=== PATIENT | male | born 1985 | race Caucasian/White ===

== ENCOUNTER 2017-03-30 11:00 | Emergency (ER) ==
[2017-03-30 11:05] VITALS: BP 111/68; TEMP 98.1; BMI 25.0
--- NOTE | 2017-03-30 11:32 | DI ---
EXAM: Two views of the chest. History: Cough. Comparison: Chest radiograph 10/22/2014 Findings: Heart size is normal. No focal consolidation. No appreciable pleural fluid and no pneumo thorax. No acute osseous abnormalities. Impression: No acute cardiopulmonary process.
--- NOTE | 2017-03-30 12:29 | ED.PDOC ---
General ED Provider: Dr. CHEVY SAINI Chief Complaint: Chest Wall Injury/Pain Stated Complaint: cough flu like symptoms Time Seen by Physician: 11:00 Mode of Arrival: Walk-In Information Source: Patient Exam Limitations: No limitations Primary Care Provider: OLAMIDE FIORE Nursing and Triage Documentation Reviewed and Agree: Yes Reviewed sepsis parameters & appropriate labs ordered?: Yes System Inflammatory Response Syndrome: Not Applicable Sepsis Protocol: For patient's 13 years and over: Temp is 96.8 and below OR 101 and greater Pulse >90 BPM Resp >20/minute Acutely Altered Mental Status Are patient's symptoms suggestive of a new infection, such as: -Pneumonia -Skin, Soft Tissue -Endocarditis -UTI -Bone, Joint Infection -Implantable Device -Acute Abdominal Infection -Wound Infection -Meningitis -Blood Stream Catheter Infection -Unknown System Inflammatory Response Syndrome: Not Applicable Respiratory Complaint Exam - Respiratory Complaint/Exam Symptoms Are: Still present Timing: Constant Initial Severity: Mild Current Severity: Mild Location: Nose, Throat, Chest Character: Reports: Non-productive cough Aggravating: Reports: None Alleviating: Reports: None Associated Signs and Symptoms: Reports: Chills, URI, Nasal congestion, Sore throat. Denies: Rapid breathing, Dyspnea, Fever, Chest pain, Pleuritic chest pain, Wheezing, Hemoptysis, Dizziness, Calf pain, Calf swelling, Edema, Hoarseness, Sinus discomfort, Vomiting, Weight loss, Decreased oral intake, Increased thirst, Increased appetite, Increased urination Related History: Reports: Similar episode History of Healthcare-Acquired Pneumonia: No Related Surgical History: Reports: None Pulmonary Embolism Risk Factors: None Cardiac Risk Factors: Reports: None Pseudomonas Risk Factors: Reports: None Tuberculosis Risk Factors: Reports: None Status Asthmaticus Risk Factors: Reports: None Home Oxygen Use: No Recent Stress Test: No Recent Echo/LV Function: No Current Antibiotic Use: No Current Asthma Medication Use: No Respiratory Distress: None Inadequate Respiratory Effort: No Dysphagia Present: No Stridor Present: No JVD Present: No Accessory Muscle Use: No Retractions: Not Present Differential Diagnoses: Pneumonia, Bronchitis Review of Systems - Review Of Systems Constitutional: Reports: No symptoms, Malaise Eyes: Reports: No symptoms Ears, Nose, Mouth, Throat: Reports: No symptoms, Throat pain Respiratory: Reports: Cough Cardiac: Reports: No symptoms GI: Reports: No symptoms : Reports: No symptoms Musculoskeletal: Reports: No symptoms Skin: Reports: No symptoms Neurological: Reports: No symptoms Endocrine: Reports: No symptoms Hematologic/Lymphatic: Reports: No symptoms All Other Systems: Reviewed and Negative Past Medical History - Past Medical History Endocrine: Reports: None Cardiovascular: Reports: None Respiratory: Reports: None Hematological: Reports: None Gastrointestinal: Reports: None Genitourinary: Reports: None Neuro/Psych: Reports: None Musculoskeletal: Reports: None Cancer: Reports: None - Surgical History General Surgical History: Reports: None, Unknown - Family History Family History: Reports: None - Social History Smoking Status: Current every day smoker, Heavy tobacco smoker Hx Substance Use: No (MARIJUANA) Alcohol Screening: None Physical Exam - Physical Exam Appearance: Well-appearing, No pain distress, Well-nourished Eyes: ADDISON, EOMI, Conjunctiva clear ENT: Ears normal, Nose normal, Oropharynx normal Respiratory: Airway patent, Breath sounds clear, Breath sounds equal, Respirations nonlabored Cardiovascular: RRR, Pulses normal, No rub, No murmur GI/: Soft, Nontender, No masses, Bowel sounds normal, No Organomegaly Musculoskeletal: Normal strength, ROM intact, No edema, No calf tenderness Skin: Warm, Dry, Normal color Neurological: Sensation intact, Motor intact, Reflexes intact, Cranial nerves intact, Alert, Oriented Psychiatric: Affect appropriate, Mood appropriate Interpretation - Radiology Interpretation Radiology Interpretation By: Radiologist Radiology Results: No acute changes Critical Care Note - Critical Care Note Total Time (mins): 0 Course - Course Hematology/Chemistry: 03/30/17 11:15 03/30/17 11:15 Orders, Labs, Meds: Lab Review 03/30/17 03/30/17 03/30/17 11:15 11:15 11:15 WBC 9.20 RBC 4.92 Hgb 15.5 Hct 43.9 MCV 89.2 MCH 31.5 H MCHC 35.3 RDW Coeff of [place] 13.2 Plt Count 229 Immature Gran % (Auto) 0.1 Neut % (Auto) 65.1 Lymph % (Auto) 22.7 [place] % (Auto) 7.8 Eos % (Auto) 3.6 Baso % (Auto) 0.7 Immature Gran # (Auto) 0.0 Neut # 6.0 Lymph # 2.1 [place] # 0.7 Eos # 0.3 Baso # 0.1 Sodium 137 Potassium 4.0 Chloride 104 Carbon Dioxide 27 Anion Gap 10.0 BUN 10 Creatinine 0.84 Estimated GFR (MDRD) 107.00 BUN/Creatinine Ratio 11.90 Glucose 98 Calcium 9.8 Total Bilirubin 0.4 AST 28 ALT 25 Alkaline Phosphatase 70 Total Protein 7.8 Albumin 3.8 Globulin 4.0 Albumin/Globulin Ratio 0.95 Influenza A (Rapid) Negative by naat Influenza B (Rapid) Negative by naat Orders Category Date Time Status CBC W/ AUTO DIFF Stat LAB 03/30/17 11:15 Completed COMPREHENSIVE METABOLIC PANEL Stat LAB 03/30/17 11:15 Completed MOLECULAR FLU A/B Stat LAB 03/30/17 11:15 Completed MOLECULAR GROUP A STREP Stat LAB 03/30/17 11:15 Completed CHEST, 2 VIEWS PA & LAT Stat RADS 03/30/17 11:06 Completed Vital Signs: Temp Pulse Resp BP Pulse Ox 03/30/17 11:01 98.1 F 72 20 111/68 98 Departure - Departure Time of Disposition: 12:28 Disposition: HOME SELF-CARE Discharge Problem: Viral syndrome Instructions: Viral Syndrome (ED) Condition: Good Pt referred to PMD for follow-up: Yes Additional Instructions: Please call your Family Physician as soon as possible to schedule a follow-up appointment. Allergies/Adverse Reactions: Allergies Penicillins Adverse Reaction (Verified 03/30/17 11:07) Home Medications: Ambulatory Orders 1 [No Reported Medications] 03/30/17
== END 2017-03-30 12:37 | disposition home or self-care (01) ==
LOC: ED 11:00
DX: B34.9 Viral infection, unspecified (principal); F17.210 Nicotine dependence, cigarettes, uncomplicated
CPT/HCPCS: 36415; 80053; 85025; 87502; 87651; 99283

== ENCOUNTER 2017-04-05 01:44 | Outpatient (CLI) ==
[2017-04-05 21:49] VITALS: BMI 24.3
== END 2017-04-05 01:50 ==
LOC: AMBL 01:44
PROVIDERS: ATTEND Emergency Medicine
DX: R07.9 Chest pain, unspecified (principal)

== ENCOUNTER 2017-04-05 02:00 | Emergency (ER) ==
[2017-04-05 02:20] VITALS: BP 132/88; TEMP 97.9; BMI 24.3
--- NOTE | 2017-04-05 02:46 | ED.PDOC ---
General ED Provider: Dr. CIERRA MCCOY Chief Complaint: Chest Wall Injury/Pain Stated Complaint: Patient is a 31 year old patient who comes to the ER with complains of pain to right rib area that moves around to the chest, worse when he talk or takes a breathe. He also states has pain to back at shoulder area Time Seen by Physician: 02:43 Mode of Arrival: Ambulance Information Source: Patient Exam Limitations: No limitations Primary Care Provider: OLAMIDE FIORE Nursing and Triage Documentation Reviewed and Agree: Yes Reviewed sepsis parameters & appropriate labs ordered?: Yes System Inflammatory Response Syndrome: Not Applicable Sepsis Protocol: For patient's 13 years and over: Temp is 96.8 and below OR 101 and greater Pulse >90 BPM Resp >20/minute Acutely Altered Mental Status Are patient's symptoms suggestive of a new infection, such as: -Pneumonia -Skin, Soft Tissue -Endocarditis -UTI -Bone, Joint Infection -Implantable Device -Acute Abdominal Infection -Wound Infection -Meningitis -Blood Stream Catheter Infection -Unknown System Inflammatory Response Syndrome: Not Applicable Cardiovascular Complaint Exam - Chest Pain Complaint/Exam Onset: Sudden Duration: 1 week Symptoms Are: Still present Timing: Constant Location: Reports: Diffuse Pain Radiates: Reports: None Character: Reports: Tightness, Sharp Aggravating: Reports: Movement, Deep breaths Alleviating: Reports: None Associated Signs and Symptoms: Denies: Diaphoresis, Nausea, Vomiting, Fever, Palpitations, Cough, Hemoptysis, Back pain, Abdominal pain, Dizziness, Short of air, Calf pain, Calf swelling Related History: Reports: Similar episode Related Surgical History: Reports: None History of Healthcare-Acquired Pneumonia: Reports: No AMI/ACS Risk Factors: Reports: None TAD Risk Factors: Reports: None Pulmonary Embolism Risk Factors: Reports: None Prior Care for this Complaint: No Recent Stress Test: No Recent Echo/LV Function: No JVD Present: No Subcutaneous Emphysema Present: No Diminshed Breath Sounds: No Reproducible Chest Wall Pain: Yes Bilateral Pulses Present: No If Risk Factors for AMI/ACS Consider: EKG, Cardiac Enzymes, Aspirin Differential Diagnoses: Acute CO, Chest Wall Pain, Other (pleuricy ) Review of Systems - Review Of Systems Constitutional: Reports: No symptoms Eyes: Reports: No symptoms Ears, Nose, Mouth, Throat: Reports: No symptoms Respiratory: Reports: No symptoms Cardiac: Reports: Chest pain GI: Reports: No symptoms : Reports: No symptoms Musculoskeletal: Reports: No symptoms Skin: Reports: No symptoms Neurological: Reports: Anxiety Endocrine: Reports: No symptoms Hematologic/Lymphatic: Reports: No symptoms All Other Systems: Reviewed and Negative Past Medical History - Past Medical History Endocrine: Reports: None Cardiovascular: Reports: None Respiratory: Reports: Asthma Hematological: Reports: None Gastrointestinal: Reports: None Genitourinary: Reports: None Neuro/Psych: Reports: None Musculoskeletal: Reports: None Cancer: Reports: None - Surgical History General Surgical History: Reports: Unknown - Family History Family History: Reports: None - Social History Smoking Status: Current every day smoker, Heavy tobacco smoker Hx Substance Use: No (MARIJUANA) Alcohol Screening: None - Immunizations Tetanus Shot up to Date: (UNKNOWN) Physical Exam - Physical Exam Appearance: Ill-appearing Ill-appearing: Mild Pain Distress: Severe Eyes: ADDISON, EOMI, Conjunctiva clear ENT: Ears normal, Nose normal, Oropharynx normal (except poor dentiation. ) Neck: Supple Respiratory: Airway patent, Breath sounds clear, Breath sounds equal, Respirations nonlabored Cardiovascular: RRR GI/: Soft, Nontender, No masses, Bowel sounds normal, No Organomegaly Musculoskeletal: Normal strength, ROM intact, No edema, No calf tenderness Skin: Warm, Dry, Normal color Neurological: Sensation intact, Motor intact, Reflexes intact, Cranial nerves intact, Alert, Oriented Psychiatric: Anxious Interpretation - Radiology Interpretation Radiology Interpretation By: ED Physician Radiology Results: Negative Exam Interpreted: Portable CXR - EKG Interpretation Time of EKG #1: 02:55 Rate: Normal Rhythm: Sinus Ectopy: None [place]: NL ST Segment: Other (Diffuse ST elevation.) Interpretation: Normal EKG Critical Care Note - Critical Care Note Total Time (mins): 0 Course - Course Hematology/Chemistry: 04/05/17 02:50 04/05/17 02:50 Orders, Labs, Meds: Lab Review 04/05/17 04/05/17 02:50 02:50 WBC 12.15 H RBC 4.82 Hgb 15.0 Hct 41.9 L MCV 86.9 MCH 31.1 H MCHC 35.8 H RDW Coeff of [place] 12.9 Plt Count 281 Immature Gran % (Auto) 0.4 Neut % (Auto) 62.6 Lymph % (Auto) 27.4 [place] % (Auto) 5.8 Eos % (Auto) 3.3 Baso % (Auto) 0.5 Immature Gran # (Auto) 0.1 Neut # 7.6 H Lymph # 3.3 [place] # 0.7 Eos # 0.4 Baso # 0.1 Sodium 138 Potassium 4.0 Chloride 102 Carbon Dioxide 28 Anion Gap 12.0 BUN 12 Creatinine 0.88 Estimated GFR (MDRD) 102.00 BUN/Creatinine Ratio 13.63 Glucose 113 H Calcium 10.1 Total Bilirubin 0.4 AST 21 ALT 22 Alkaline Phosphatase 65 Troponin I < 0.0100 Total Protein 7.5 Albumin 3.8 Globulin 3.7 Albumin/Globulin Ratio 1.03 Orders Category Date Time Status EKG-(ED ONLY) Stat CARDIO 04/05/17 03:10 Completed CBC W/ AUTO DIFF Stat LAB 04/05/17 02:50 Completed COMPREHENSIVE METABOLIC PANEL Stat LAB 04/05/17 02:50 Completed TROPONIN I Stat LAB 04/05/17 02:50 Completed Ketorolac Tromethamine [Toradol] MEDS 04/05/17 02:47 Discontinued 60 mg IM ONCE STA CHEST, 1V AP ONLY Stat RADS 04/05/17 02:46 Completed Medications Discontinued Medications Generic Name Dose Route Start Last Admin Trade Name Freq PRN Reason Stop Dose Admin Ketorolac Tromethamine 60 mg 04/05/17 02:47 04/05/17 03:03 Toradol IM 04/05/17 02:48 60 mg ONCE STA Administration Vital Signs: Temp Pulse Resp BP Pulse Ox 04/05/17 02:03 97.9 F 67 24 132/88 99 LUCY Risk Score Age >/= 65: No >/= 3 CAD Risk Factors: No Known CAD (Stenosis >/= 50%): No ASA Use in Past 7 Days: No Severe Angina (>/= 2 episodes in 24 hours): No EKG ST Changes >/= 0.5mm: No Postive Cardiac Marker: No LUCY Total Score: 0 LUCY Risk Score: Risk Score Odds of by 30D 0 0.1 (0.1-0.2) 1 0.3 (0.2-0.3) 2 0.4 (0.3-0.5) 3 0.7 (0.6-0.9) 4 1.2 (1.0-1.5) 5 2.2 (1.9-2.6) 6 3.0 (2.5-3.6) 7 4.8 (3.8-6.1) Departure - Departure Time of Disposition: 03:30 Disposition: HOME SELF-CARE Discharge Problem: Chest wall pain Pericarditis Qualifiers: Pericarditis type: idiopathic Chronicity: acute Qualified Code(s): I30.0 - Acute nonspecific idiopathic pericarditis Instructions: Acute Pericarditis (ED), Chest Wall Pain (ED) Condition: Stable Pt referred to PMD for follow-up: Yes IPMP verified?: No Additional Instructions: Take Medications as prescribed Follow up wit PCP in 3 day Prescriptions: Etodolac [Lodine] 400 mg PO BIDWM #30 tablet Allergies/Adverse Reactions: Allergies Penicillins Adverse Reaction (Verified 04/05/17 02:09) Home Medications: Ambulatory Orders Etodolac [Lodine] 400 mg PO BIDWM #30 tablet 04/05/17 Disposition Discussed With: Patient
[2017-04-05] MEDS: TORADOL IM STA (03:03)
--- NOTE | 2017-04-05 04:45 | DI ---
EXAM: Chest, one-view HISTORY: Chest Pain FINDINGS: Cardiac and mediastinal contours are normal. Pulmonary vasculature is normal. Lungs are clear. Bony thorax is unremarkable. IMPRESSION: Within normal limits
== END 2017-04-05 04:10 | disposition home or self-care (01) ==
LOC: ED 02:00
DX: I30.0 Acute nonspecific idiopathic pericarditis (principal); Z72.0 Tobacco use; R07.89 Other chest pain
CPT/HCPCS: 36415; 80053; 82550; 84484; 85025; 93005; 93010; 96372; 99283

== ENCOUNTER 2017-04-05 21:02 | Outpatient (CLI) ==
[2017-04-05 21:49] VITALS: BMI 24.3
== END 2017-04-05 21:08 | disposition home or self-care (01) ==
LOC: AMBL 21:02
PROVIDERS: ATTEND Family Medicine
DX: R07.89 Other chest pain (principal); I31.9 Disease of pericardium, unspecified

== ENCOUNTER 2017-04-05 21:13 | Emergency (ER) ==
[2017-04-05 21:49] VITALS: BP 121/82; TEMP 97.6; BMI 24.3
[2017-04-05] MEDS: MOTRIN PO STA (21:49)
--- NOTE | 2017-04-05 21:51 | ED.PDOC ---
General ED Provider: Dr. CIERRA MCCOY Chief Complaint: Chest Pain Stated Complaint: Patient is a 31 year old female who comes to the ER with chest pain. he was seen last night for the same. Time Seen by Physician: 21:49 Mode of Arrival: Ambulance Information Source: Patient Exam Limitations: No limitations Primary Care Provider: OLAMIDE FIORE Seen Within Last 72 Hours for Same Complaint By: ED (24 hours ago) Nursing and Triage Documentation Reviewed and Agree: Yes Reviewed sepsis parameters & appropriate labs ordered?: Yes System Inflammatory Response Syndrome: Not Applicable Sepsis Protocol: For patient's 13 years and over: Temp is 96.8 and below OR 101 and greater Pulse >90 BPM Resp >20/minute Acutely Altered Mental Status Are patient's symptoms suggestive of a new infection, such as: -Pneumonia -Skin, Soft Tissue -Endocarditis -UTI -Bone, Joint Infection -Implantable Device -Acute Abdominal Infection -Wound Infection -Meningitis -Blood Stream Catheter Infection -Unknown System Inflammatory Response Syndrome: Not Applicable Cardiovascular Complaint Exam - Chest Pain Complaint/Exam Onset: Gradual Duration: 2 hours Symptoms Are: Still present Timing: Constant Length of Chest Pain Episodes: constant Initial Severity: Moderate Current Severity: Severe Location: Reports: Diffuse Pain Radiates: Reports: None Character: Reports: Aching, Tightness Aggravating: Reports: Movement, Deep breaths Alleviating: Reports: None Associated Signs and Symptoms: Denies: Diaphoresis, Nausea, Vomiting, Fever, Palpitations, Cough, Hemoptysis, Back pain, Abdominal pain, Dizziness, Short of air, Calf pain, Calf swelling Related History: Reports: Similar episode History of Healthcare-Acquired Pneumonia: Reports: No AMI/ACS Risk Factors: Reports: None TAD Risk Factors: Reports: None Pulmonary Embolism Risk Factors: Reports: None Prior Care for this Complaint: Yes (seen yesterday could not fill medications. ) Recent Stress Test: No Recent Echo/LV Function: No JVD Present: No Subcutaneous Emphysema Present: No Diminshed Breath Sounds: No Reproducible Chest Wall Pain: Yes Bilateral Pulses Present: No Unequal Pulses Noted: No If Risk Factors for AMI/ACS Consider: EKG, Cardiac Enzymes Documents Reviewed: EMS records Differential Diagnoses: Chest Wall Pain Quality Indicators For Acute CA or Cardiac Chest Pain: EKG in 10min. Quality Indicator For Non-Traumatic Chest Pain/Syncope: EKG Performed Patient Advised to Stop Smoking: Yes Review of Systems - Review Of Systems Constitutional: Reports: No symptoms Eyes: Reports: No symptoms Ears, Nose, Mouth, Throat: Reports: No symptoms Respiratory: Reports: No symptoms Cardiac: Reports: Chest pain GI: Reports: No symptoms : Reports: No symptoms Musculoskeletal: Reports: No symptoms Skin: Reports: No symptoms Neurological: Reports: No symptoms Endocrine: Reports: No symptoms Hematologic/Lymphatic: Reports: No symptoms All Other Systems: Reviewed and Negative Past Medical History - Past Medical History Endocrine: Reports: None Cardiovascular: Reports: None Respiratory: Reports: Asthma Hematological: Reports: None Gastrointestinal: Reports: None Genitourinary: Reports: None Neuro/Psych: Reports: None Musculoskeletal: Reports: None Cancer: Reports: None - Surgical History General Surgical History: Reports: Unknown - Family History Family History: Reports: None - Social History Smoking Status: Current every day smoker, Heavy tobacco smoker Hx Substance Use: No (MARIJUANA) Alcohol Screening: None - Immunizations Tetanus Shot up to Date: (UNKNOWN) Physical Exam - Physical Exam Appearance: Ill-appearing Ill-appearing: Mild Pain Distress: Severe Neck: Supple Respiratory: Airway patent, Breath sounds clear, Breath sounds equal, Respirations nonlabored Cardiovascular: RRR, Pulses normal, No rub, No murmur GI/: Soft, Nontender, No masses, Bowel sounds normal, No Organomegaly Musculoskeletal: Normal strength, ROM intact, No edema, No calf tenderness Skin: Warm, Dry, Normal color Neurological: Sensation intact, Motor intact, Reflexes intact, Cranial nerves intact, Alert, Oriented Psychiatric: Anxious Interpretation - Radiology Interpretation Radiology Interpretation By: ED Physician Radiology Results: Negative Exam Interpreted: CXR - EKG Interpretation Time of EKG #1: 21:36 Rate: Normal Rhythm: Sinus Ectopy: None ST Segment: Normal Interpretation: T wave inversion on v1-v3 EKG Comparison: No significant changes (T wave inversion unchanged.) Critical Care Note - Critical Care Note Total Time (mins): 0 Course - Course Hematology/Chemistry: 04/05/17 21:30 04/05/17 21:30 Orders, Labs, Meds: Lab Review 04/05/17 04/05/17 21:30 21:30 WBC 12.72 H RBC 4.75 Hgb 14.6 Hct 41.3 L MCV 86.9 MCH 30.7 MCHC 35.4 RDW Coeff of [place] 12.8 Plt Count 309 Immature Gran % (Auto) 0.2 Neut % (Auto) 52.6 Lymph % (Auto) 34.0 [place] % (Auto) 8.1 Eos % (Auto) 4.5 Baso % (Auto) 0.6 Immature Gran # (Auto) 0.0 Neut # 6.7 Lymph # 4.3 H [place] # 1.0 Eos # 0.6 Baso # 0.1 Sodium 139 Potassium 3.6 Chloride 103 Carbon Dioxide 28 Anion Gap 11.6 BUN 14 Creatinine 0.90 Estimated GFR (MDRD) 99.00 BUN/Creatinine Ratio 15.55 Glucose 116 H Calcium 9.5 Total Bilirubin 0.4 AST 21 ALT 21 Alkaline Phosphatase 65 Total Creatine Kinase 114 Troponin I < 0.0100 Total Protein 7.4 Albumin 3.6 Globulin 3.8 Albumin/Globulin Ratio 0.95 Orders Category Date Time Status EKG-(ED ONLY) Stat CARDIO 04/05/17 21:23 Completed CBC W/ AUTO DIFF Stat LAB 04/05/17 21:30 Completed COMPREHENSIVE METABOLIC PANEL Stat LAB 04/05/17 21:30 Completed CREATINE KINASE Stat LAB 04/05/17 21:30 Completed TROPONIN I Stat LAB 04/05/17 21:30 Completed Ibuprofen [Motrin] MEDS 04/05/17 21:41 Discontinued 800 mg PO ONCE STA Nalbuphine HCl [Nubain] MEDS 04/05/17 22:23 Discontinued 10 mg IM ONCE STA CHEST, 1V AP ONLY Stat RADS 04/05/17 21:23 Taken Medications Discontinued Medications Generic Name Dose Route Start Last Admin Trade Name Freq PRN Reason Stop Dose Admin Ibuprofen 800 mg 04/05/17 21:41 04/05/17 21:49 Motrin PO 04/05/17 21:42 800 mg ONCE STA Administration Nalbuphine HCl 10 mg 04/05/17 22:23 04/05/17 22:29 Nubain IM 04/05/17 22:24 10 mg ONCE STA Administration Vital Signs: Temp Pulse Resp BP Pulse Ox 04/05/17 21:14 97.6 F 77 20 121/82 98 LUCY Risk Score Age >/= 65: No >/= 3 CAD Risk Factors: No Known CAD (Stenosis >/= 50%): No ASA Use in Past 7 Days: No Severe Angina (>/= 2 episodes in 24 hours): No EKG ST Changes >/= 0.5mm: No Postive Cardiac Marker: No LUCY Total Score: 0 LUCY Risk Score: Risk Score Odds of by 30D 0 0.1 (0.1-0.2) 1 0.3 (0.2-0.3) 2 0.4 (0.3-0.5) 3 0.7 (0.6-0.9) 4 1.2 (1.0-1.5) 5 2.2 (1.9-2.6) 6 3.0 (2.5-3.6) 7 4.8 (3.8-6.1) Departure - Departure Time of Disposition: 23:31 Disposition: HOME SELF-CARE Discharge Problem: Chest wall pain Instructions: Chest Pain (ED) Condition: Fair Pt referred to PMD for follow-up: Yes IPMP verified?: No Additional Instructions: Fill you prescription for Motrin Followup with PCP in 3 days Prescriptions: Ibuprofen [Motrin] 600 mg PO Q6H PRN #30 tablet PRN Reason: Analgesia Allergies/Adverse Reactions: Allergies Penicillins Adverse Reaction (Verified 04/05/17 21:23) Home Medications: Ambulatory Orders Etodolac [Lodine] 400 mg PO BIDWM #30 tablet 04/05/17 Ibuprofen [Motrin] 600 mg PO Q6H PRN #30 tablet 04/05/17 Disposition Discussed With: Patient
[2017-04-05] MEDS: NUBAIN IM STA (22:29)
--- NOTE | 2017-04-06 07:23 | DI ---
EXAM: CHEST FRONTAL VIEW HISTORY: Chest pain. COMPARISON: 04/05/2017 FINDINGS: Heart size and mediastinum remain within normal limits. Lungs are free of infiltrate. No consolidation or pleural fluid. There is no pneumothorax or acute bony finding. IMPRESSION: Findings within normal limits.
== END 2017-04-05 23:56 | disposition home or self-care (01) ==
LOC: ED 21:13
DX: R07.89 Other chest pain (principal); Z72.0 Tobacco use
CPT/HCPCS: 36415; 80053; 82550; 84484; 85025; 96372; 99283

== ENCOUNTER 2017-04-07 11:22 | Emergency (ER) ==
[2017-04-07 11:30] VITALS: BP 147/80; TEMP 97.6; BMI 25.3
--- NOTE | 2017-04-07 12:12 | ED.PDOC ---
General ED Provider: Dr. CHEVY SIANI Chief Complaint: Chest Wall Injury/Pain Stated Complaint: chest wall pain Time Seen by Physician: 11:45 (seen with may at all times ) Mode of Arrival: Walk-In Information Source: Patient Exam Limitations: No limitations Primary Care Provider: OLAMIDE FIORE Nursing and Triage Documentation Reviewed and Agree: Yes Reviewed sepsis parameters & appropriate labs ordered?: Yes System Inflammatory Response Syndrome: Not Applicable Sepsis Protocol: For patient's 13 years and over: Temp is 96.8 and below OR 101 and greater Pulse >90 BPM Resp >20/minute Acutely Altered Mental Status Are patient's symptoms suggestive of a new infection, such as: -Pneumonia -Skin, Soft Tissue -Endocarditis -UTI -Bone, Joint Infection -Implantable Device -Acute Abdominal Infection -Wound Infection -Meningitis -Blood Stream Catheter Infection -Unknown System Inflammatory Response Syndrome: Not Applicable Trauma/Injury Complaint Exam - Truncal Trauma Complaint/Exam Location of Pain: Reports: Chest (right sided chronic issue ) Onset: chronic unable to get meds due to costs Symptoms Are: Still present Onset of Pain: Reports: Hours Initial Severity: Moderate Current Severity: Mild Mechanism: Reports: Unknown Aggravating: Reports: Movement Alleviating: Reports: Rest Associated Signs and Symptoms: Denies: Short of air, Chest pain, Cough, Hematuria, Abdominal pain, Fever, Nausea, Vomiting Related History: Reports: Similar episode Related Surgical History: Reports: None Immobilization Removed Post Exam: No Vertebral Tenderness Present: No Vertebral Deformity Present: No Trachial Deviation Present: No JVD Present: No Crepitus Present: No Diminished Breath Sounds: No Muffled Heart Sounds Present: No Paradoxical Chest Wall Movement Present: No Abdominal Guarding Present: No Abdominal Rigidity Present: No Referred Shoulder Pain (Kehr's Sign) Present: No Review of Systems - Review Of Systems Constitutional: Reports: No symptoms Eyes: Reports: No symptoms Ears, Nose, Mouth, Throat: Reports: No symptoms Respiratory: Reports: No symptoms Cardiac: Reports: Other (chest wall pain chronic) GI: Reports: No symptoms : Reports: No symptoms Musculoskeletal: Reports: No symptoms Skin: Reports: No symptoms Neurological: Reports: No symptoms Endocrine: Reports: No symptoms Hematologic/Lymphatic: Reports: No symptoms All Other Systems: Reviewed and Negative Past Medical History - Past Medical History Previously Healthy: Yes Endocrine: Reports: None Cardiovascular: Reports: None Respiratory: Reports: Asthma Hematological: Reports: None Gastrointestinal: Reports: None Genitourinary: Reports: None Neuro/Psych: Reports: None Musculoskeletal: Reports: None Cancer: Reports: None - Surgical History General Surgical History: Reports: Unknown - Family History Family History: Reports: None - Social History Smoking Status: Current every day smoker, Heavy tobacco smoker Hx Substance Use: No (MARIJUANA) Alcohol Screening: None Physical Exam - Physical Exam Appearance: Well-appearing, No pain distress, Well-nourished Eyes: ADDISON, EOMI, Conjunctiva clear ENT: Ears normal, Nose normal, Oropharynx normal Respiratory: Airway patent, Breath sounds clear, Breath sounds equal, Respirations nonlabored Cardiovascular: RRR, Pulses normal, No rub, No murmur GI/: Soft, Nontender, No masses, Bowel sounds normal, No Organomegaly Musculoskeletal: Normal strength, ROM intact, No edema, No calf tenderness Skin: Warm, Dry, Normal color Neurological: Sensation intact, Motor intact, Reflexes intact, Cranial nerves intact, Alert, Oriented Psychiatric: Affect appropriate, Mood appropriate Critical Care Note - Critical Care Note Total Time (mins): 0 Course - Course Vital Signs: Temp Pulse Resp BP Pulse Ox 04/07/17 11:23 97.6 F 73 16 147/80 H 98 Departure - Departure Time of Disposition: 12:11 Disposition: HOME SELF-CARE Discharge Problem: Chest injury, Chest wall pain Instructions: Thoracic Pain (ED), Chest Pain (ED), Chest Wall Pain in Children (ED) Condition: Good Pt referred to PMD for follow-up: Yes IPMP verified?: Yes Prescriptions: Hydrocodone/Acetaminophen [[place] 10-325 Tablet] 1 each PO Q8HR #12 tablet Allergies/Adverse Reactions: Allergies Penicillins Adverse Reaction (Verified 04/07/17 11:30) Home Medications: Ambulatory Orders Etodolac [Lodine] 400 mg PO BIDWM #30 tablet 04/05/17 Ibuprofen [Motrin] 600 mg PO Q6H PRN #30 tablet 04/05/17 Hydrocodone/Acetaminophen [[place] 10-325 Tablet] 1 each PO Q8HR #12 tablet Disposition Discussed With: Patient
== END 2017-04-07 12:42 | disposition home or self-care (01) ==
LOC: ED 11:22
DX: R07.89 Other chest pain (principal); F17.210 Nicotine dependence, cigarettes, uncomplicated
CPT/HCPCS: 99282

== ENCOUNTER 2017-05-06 06:13 | Outpatient (CLI) | END 2017-05-06 06:14 | disposition home or self-care (01) | LOC: CAR 06:13 | PROVIDERS: ATTEND Nurse Practitioner Family | DX: I49.9 Cardiac arrhythmia, unspecified (principal) ==